=== PATIENT | female | born 1945 | race Caucasian/White ===

== ENCOUNTER 2018-09-14 12:06 | Emergency (ER) | payer MEDICARE, OTHER ==
[2018-09-14 12:30] VITALS: BP 130/78
--- NOTE | 2018-09-14 12:50 | EDM.PDOC ---
ED HPI GENERAL MEDICAL PROBLEM - General Chief Complaint: Upper Extremity Injury/Pain Stated Complaint: POSSIBLE BROKEN LT WRIST Time Seen by Provider: 09/14/18 12:22 Source of Information: Reports: Patient History Limitations: Reports: No Limitations - History of Present Illness INITIAL COMMENTS - FREE TEXT/NARRATIVE: 73 yo female presents to ER with left wrist injury. Pt fell landing on out stretched hand. Pain and swelling. - Related Data Allergies Allergy/AdvReac Type Severity Reaction Status Date / Time Iodinated Contrast- Oral and Allergy Other Verified 09/14/18 12:20 IV Dye Home Meds: Home Meds Acetaminophen 1 - 2 tab PO Q6H PRN 03/20/17 [History] Alendronate Sodium [Fosamax] 1 tab PO WEEKLY 03/20/17 [History] Amphetamine/Dextroamphetamine [Adderall XR] 1 tab PO BID 03/20/17 [History] Bimatoprost [LUMIGAN 0.01% Ophth Soln] 1 drop EYEBOTH BEDTIME 03/20/17 [History] Cetirizine [ZyrTEC] 1 tab PO DAILY PRN 03/20/17 [History] Estradiol [Estrace 0.01% Vaginal Crm] 0.5 g ASDIRECTED 03/20/17 [History] L.acidoph,Paracasei, B.lactis [Probiotic] 1 cap PO DAILY 03/20/17 [History] Levothyroxine Sodium [Synthroid] 1 tab PO DAILY 03/20/17 [History] Omeprazole 1 cap PO DAILY 03/20/17 [History] Zolpidem Tartrate [Ambien] 1 - 2 tab PO BEDTIME PRN 03/20/17 [History] flavoxATE [flavoxATE HCl] 1 tab PO TID PRN 03/20/17 [History] fluvoxaMINE Maleate [Fluvoxamine Maleate ER] 1 cap PO BID 03/20/17 [History] ARIPiprazole [Aripiprazole] 09/14/18 [History] Gabapentin [Neurontin] 09/14/18 [History] Terbinafine HCl [Terbinafine] 09/14/18 [History] amLODIPine [Norvasc] 09/14/18 [History] fluvoxaMINE Maleate [Fluvoxamine Maleate] 09/14/18 [History] Past Medical History HEENT History: Reports: Cataract Cardiovascular History: Reports: Arrhythmia, Hypertension Gastrointestinal History: Reports: Irritable Bowel Syndrome Musculoskeletal History: Reports: Neck Pain, Chronic Endocrine/Metabolic History: Reports: Hyperparathyroidism Dermatologic History: Reports: Benign Melanoma - Past Surgical History Female Surgical History: Reports: Endometrial Ablation Musculoskeletal Surgical History: Reports: Arthroscopic Procedure, Shoulder Replacement Social & Family History - Tobacco Use Smoking Status *Q: Never Smoker Review of Systems - Review of Systems Review Of Systems: See Below Constitutional: Denies: Chills, Fever Respiratory: Denies: Shortness of Breath, Wheezing Cardiovascular: Denies: Chest Pain GI/Abdominal: Denies: Abdominal Pain Musculoskeletal: Reports: Arm Pain ED EXAM, GENERAL - Physical Exam Exam: See Below Exam Limited By: No Limitations General Appearance: Alert, WD/WN, No Apparent Distress Respiratory/Chest: No Respiratory Distress Peripheral Pulses: 2+: Radial (L) Extremities: Arm Pain (moderate deformity and edema left forearm, CMS distil to injury intact) Course - Vital Signs Last Recorded V/S: Last Vital Signs Temp 36.4 C 09/14/18 12:29 Pulse 109 H 09/14/18 12:29 Resp 14 09/14/18 12:29 BP 130/78 09/14/18 12:29 Pulse Ox 96 09/14/18 12:29 - Orders/Labs/Meds Orders: Active Orders 24 hr Category Date Time Status Wrist 2V Lt [CR] Stat Exams 09/14/18 14:12 Ordered Meds: Medications Discontinued Medications Generic Name Dose Route Start Last Admin Trade Name Mauri PRN Reason Stop Dose Admin Morphine Sulfate 1 mg 09/14/18 13:11 09/14/18 13:41 Morphine IVPUSH 09/14/18 13:12 1 mg ONETIME ONE Administration Ondansetron HCl 4 mg 09/14/18 13:12 09/14/18 13:41 Zofran IVPUSH 09/14/18 13:13 4 mg ONETIME ONE Administration Propofol 100 mg 09/14/18 13:49 Diprivan 20 Ml IVPUSH 09/14/18 13:50 ONETIME ONE - Re-Assessments/Exams Free Text/Narrative Re-Assessment/Exam: 09/14/18 14:10 conscience sedation with propofol with assistance of Dr. Mathis. left wrist reduction performed. CMS post reduction intact. tolerated reduction and sedation well 09/14/18 14:13 09/14/18 14:[address] Parker, instructed to follow-up with him in 7-10 days Departure - Departure Time of Disposition: 14:33 Disposition: Home, Self-Care 01 Condition: Good Clinical Impression: Fracture of radius Qualifiers: Encounter type: initial encounter Radius location: distal Fracture type: closed Fracture morphology: Colles' Laterality: right Qualified Code(s): S52.531A - Colles' fracture of right radius, initial encounter for closed fracture - Discharge Information *PRESCRIPTION DRUG MONITORING PROGRAM REVIEWED*: No *COPY OF PRESCRIPTION DRUG MONITORING REPORT IN PATIENT MEGHAN: No Instructions: Forearm Fracture, [id number] Referrals: Diego Merino MD [Primary Care Provider] - Forms: ED Department Discharge Additional Instructions: radial fracture reduced in the emergency room It is very important that you do not use the left arm follow-up with orthopedic Dr in 7-10 days, call there clinic on Sunday ice as much as possible over the next 72 hours percocet for pain control 0.5-1 tablet every 6 hours - My Orders Last 24 Hours: My Active Orders 09/14/18 14:12 Wrist 2V Lt [CR] Stat - Assessment/Plan Last 24 Hours: My Active Orders 09/14/18 14:12 Wrist 2V Lt [CR] Stat
[2018-09-14] MEDS ORDERED: Morphine 2 MG/ML Syringe IM ONE (13:06)
[2018-09-14] MEDS ORDERED: Ondansetron 4 MG Tab.DIS PO ONE (13:06)
[2018-09-14] MEDS ORDERED: Morphine 2 MG/ML Syringe IVPUSH ONE (13:11)
[2018-09-14] MEDS ORDERED: Ondansetron 4 MG/2 ML SDV IVPUSH ONE (13:12)
--- NOTE | 2018-09-14 13:23 | CRLCR ---
Trauma 3 views of the left wrist. Findings: Comminuted intra-articular impacted distal radius fracture. Overlap of the fracture fragments with volar angulation. Soft tissue swelling. Possible subtle ulnar styloid fracture. Dictated by Geno Espinoza MD @ Sep 14 2018 1:21PM Signed by Dr. Gneo Espinoza @ Sep 14 2018 1:23PM
[2018-09-14] MEDS ORDERED: Propofol 200 MG/20 ML SDV IVPUSH ONE (13:49)
--- NOTE | 2018-09-14 15:03 | CRLCR ---
INDICATION: POST REDUCTION COMPARISON: X-rays earlier the same day. FINDINGS: Two views of the left wrist demonstrate interval improved alignment and casting of previously seen comminuted distal radius fracture. Cast material obscures osseous detail. No new acute osseous or soft tissue findings. IMPRESSION: Improved alignment and casting of previously seen comminuted distal radius fracture. Dictated by Jero Mazariegos MD @ 09/14/2018 3:02:28 PM Dictated by: Jero Mazariegos MD @ 09/14/2018 15:02:43 (Electronically Signed)
== END 2018-09-14 14:50 | disposition home or self-care (01) ==
LOC: JP.ED 12:06
DX: S52.531A Colles' fracture of right radius, initial encounter for closed fracture (principal); I10 Essential (primary) hypertension; E21.3 Hyperparathyroidism, unspecified; Z91.041 Radiographic dye allergy status; Z79.899 Other long term (current) drug therapy; W19.XXXA Unspecified fall, initial encounter
CPT/HCPCS: 25605; 73100; 73110; 96374; 96375; 99152; 99283; J2270; J2405; J2704

== ENCOUNTER 2018-09-25 07:19 | Day surgery (SDC) | payer MEDICARE, OTHER ==
[2018-09-25] MEDS ORDERED: Lactated Ringers 1,000 ML IV SCH (08:00)
[2018-09-25] MEDS ORDERED: Bupivacaine 0.5% 50 ML MDV ONE (08:18)
[2018-09-25] MEDS ORDERED: Albuterol/Ipratropium 3.0-0.5 MG/3 ML Neb Soln NEB ONE (08:18)
[2018-09-25] MEDS ORDERED: ceFAZolin 2 GM in Sodium Chloride 0.9% 100 ML IV ONE (08:30)
[2018-09-25] MEDS ORDERED: ceFAZolin 2 GM in Premix Bag 1 BAG IV ONE (08:30)
[2018-09-25] MEDS ORDERED: fentaNYL 100 MCG/2 ML SDV ONE ×2 (08:38→09:21)
[2018-09-25] MEDS ORDERED: Midazolam 1 MG/ML 2 ML SDV ONE (08:38)
[2018-09-25] MEDS ORDERED: Propofol 200 MG/20 ML SDV ONE ×2 (08:38→09:04)
[2018-09-25] MEDS ORDERED: Lidocaine 0.5% 50 ML SDV ONE (08:43)
[2018-09-25 10:41] VITALS: BP 121/70
--- NOTE | 2018-09-25 14:17 | OR ---
DATE OF PROCEDURE: 09/25/2018 PREOPERATIVE DIAGNOSIS: Displaced left distal radius fracture. POSTOPERATIVE DIAGNOSIS: Displaced left distal radius fracture, intra- articular. PROCEDURE: Open reduction internal fixation of left distal radius using Synthes volar plate. ANESTHESIA: Emily block with sedation. INDICATIONS: Danuta is a 73-year-old female who sustained a fall resulting in fracture of her left distal radius. The fracture was displaced and she underwent closed reduction in the emergency room. Initial reduction looked quite good. She followed up in clinic and the splint was changed out to a short arm fiberglass cast. X-rays in the cast revealed loss of position of the fracture, particularly one of the intra-articular volar fragments. She was therefore taken to the operating room for open reduction and internal fixation. Risks, benefits , and potential complications of operative procedure versus conservative treatment were discussed. She agrees to proceed. PROCEDURE IN DETAIL: After adequate anesthesia was obtained, the patient was supine with a tourniquet about the upper arm. A longitudinal incision was made after prep and drape. This was carried out with a slight angulation across the wrist crease, carried through the subcutaneous tissues and blunt dissection then carried out radial to the palmaris longus protecting the median nerve. Self-retaining retractor was placed and the quadratus was then divided and elevated off the fracture, allowing clearance of soft tissues and reduction of the volar fragment. Reduction was evaluated using fluoroscopy. A Synthes volar locking plate was then secured using cortical screws proximally and locking screws distally. Position of screws was confirmed using fluoroscopy. One of the initial cortical screws was somewhat prominent on the dorsal surface after final placement of the plate. This was removed and replaced with a shorter screw. Final position was confirmed. The wound was then irrigated. The skin was then closed with 2-0 Vicryl and a running 3-0 Monocryl. Steri- Strips were applied. The wound was infiltrated with 0.5% Marcaine at the close of procedure. A well-padded volar splint was then applied. The patient tolerated procedure well, there were no complications, was taken from the operating room in stable condition. Shine Parker MD /[id number] ISABELL
== END 2018-09-25 10:55 | disposition home or self-care (01) ==
LOC: JP.SDS 07:19
PROVIDERS: ATTEND Specialist
DX: S52.531A Colles' fracture of right radius, initial encounter for closed fracture (principal); I10 Essential (primary) hypertension; I25.2 Old myocardial infarction; E21.3 Hyperparathyroidism, unspecified; J45.909 Unspecified asthma, uncomplicated; K21.9 Gastro-esophageal reflux disease without esophagitis; K58.9 Irritable bowel syndrome, unspecified; W19.XXXA Unspecified fall, initial encounter; Z91.041 Radiographic dye allergy status; Z79.899 Other long term (current) drug therapy
CPT/HCPCS: 25608; 36415; 76000; 80048; 85027; 94640; J0690; J2250; J2704; J3010; J3490; J7120; C1713; J7620-GY

== ENCOUNTER 2018-11-11 07:21 | Day surgery (SDC) | payer MEDICARE, OTHER ==
[~2018-11-11 07:21] MED LIST: Bupivacaine 0.5% 50 ML MDV ONE
[2018-11-11] MEDS ORDERED: Nozin Nasal Sanitizer NASBOTH ONE (07:30)
[2018-11-11] MEDS ORDERED: ceFAZolin 1 GM in Premix Bag 1 BAG IV ONE (07:45)
[2018-11-11] MEDS ORDERED: Lactated Ringers 1,000 ML IV SCH (07:45)
[2018-11-11] MEDS ORDERED: Lidocaine 0.5% 50 ML SDV ONE (08:21)
[2018-11-11] MEDS ORDERED: Propofol 200 MG/20 ML SDV ONE ×8 (08:21→12:02)
[2018-11-11] MEDS ORDERED: fentaNYL 100 MCG/2 ML SDV ONE ×2 (08:21→10:55)
[2018-11-11] MEDS ORDERED: Midazolam 1 MG/ML 2 ML SDV ONE (08:21)
[2018-11-11] MEDS ORDERED: Ketorolac 60 MG/2 ML SDV ONE (12:04)
[2018-11-11 13:51] VITALS: BP 121/77; PULSE 84
--- NOTE | 2018-11-13 13:14 | OR ---
DATE OF PROCEDURE: 11/11/2018 PREOPERATIVE DIAGNOSIS: Malunion, left distal radius, with loss of fixation. POSTOPERATIVE DIAGNOSIS: Malunion, left distal radius, with loss of fixation. PROCEDURE: Revision of open reduction and internal fixation, left distal radius. ANESTHESIA: Emily block with sedation. INDICATIONS: Danuta is a 73-year-old female who sustained a fall resulting in a volar Lieberman- type fracture with displacement. She underwent open reduction and internal fixation with a volar plate. The intraoperative fluoroscopy showed good reduction. The followup x-rays, however, showed loss of fixation on the volar fragment resulting in displacement of the carpus. She has therefore returned to the operating room for revision of open reduction and internal fixation. Risks, benefits, and potential complications including the possibility of use of an external fixator were discussed. DESCRIPTION OF PROCEDURE: After adequate anesthesia was obtained, the patient was placed supine, and the left hand and arm were prepped and draped in a sterile fashion. Previous incision was utilized and extended across the wrist crease at a 45-degree angle angling towards the radial styloid. Dissection was carried down radial to the median nerve, which was identified and protected. Blunt dissection was carried down to the plate. The previous plate and screws were exposed and removed. Evaluation during removal and exposure of the plate revealed that the volar fragment had displaced over top of the plate. Once the plate was removed, the displaced fragment was mobilized with an osteotome. Traction was placed through the digits, and the carpus was maneuvered back up in line with the radius. This was an intra-articular fracture with damage to the articular surface. The proximal end of the scaphoid was visualized and also showed some articular cartilage damage. A portion of the lunate could be visualized and appeared intact. After some manipulation of the fracture fragments and continued traction across the joint, adequate alignment could be obtained. Due to the very small nature of the fracture fragments, decision was made to use the distal radius angle plates as a buttress as attempt to get a screw through the fracture fragment would result in the screw penetrating into the radiocarpal joint. The plates were positioned and position confirmed using fluoroscopy. Initial cortical screw fixation compressed the plate against the volar aspect of the cortex of the radius providing compression and a buttress effect on the distal fragment. Radial and ulnar plates were selected. Final position of the plate and screws were confirmed using fluoroscopy. Wound was irrigated. A #1 Vicryl suture was placed through the capsule between the scaphoid and lunate, closing any potential damage to the scapholunate ligament. An additional suture was placed through the volar capsule and secured around one of the plates in an attempt to prevent displacement of the fracture fragment. The skin was then closed with 2-0 Vicryl and a running 3-0 Monocryl. Steri-Strips were applied. Wound edges were infiltrated with 0.5% Marcaine without epinephrine. Sterile dressing was applied. A well-padded volar splint was placed. The patient tolerated the procedure well. There were no complications. She was taken from the operating room in a stable condition. Shine Parker MD /[id number]
== END 2018-11-11 13:37 | disposition home or self-care (01) ==
LOC: JP.SDS 07:21
PROVIDERS: ATTEND Specialist
DX: S52.56 Barton's fracture (principal); J44.9 Chronic obstructive pulmonary disease, unspecified; J45.909 Unspecified asthma, uncomplicated; I10 Essential (primary) hypertension; K21.9 Gastro-esophageal reflux disease without esophagitis; F41.9 Anxiety disorder, unspecified; E03.9 Hypothyroidism, unspecified; W19.XXXD Unspecified fall, subsequent encounter
CPT/HCPCS: 25400; 36415; 76000; 80048; 85027; A9270; J0690; J1885; J2001; J2250; J2704; J3010; J3490; J7120; C1713

== ENCOUNTER 2020-07-20 06:59 | Day surgery (SDC) | payer MEDICARE, OTHER ==
[~2020-07-20 06:59] MED LIST changes: +Lidocaine 1% with EPINEPHrine 1:100,000 50 ML MDV ONE; +Meropenem 500 MG SDV ONE
[2020-07-20] MEDS ORDERED: Gabapentin 300 MG Cap PO ONE (07:15)
[2020-07-20] MEDS ORDERED: Acetaminophen 500 MG Tab PO ONE (07:15)
[2020-07-20] MEDS ORDERED: Ketamine 50 MG in Sodium Chloride 0.9% 49.5 ML IV SCH (07:30)
[2020-07-20] MEDS ORDERED: Ketamine 500 MG/5 ML MDV IV SCH (07:30)
[2020-07-20] MEDS ORDERED: Dextrose 5%-Lactated Ringers 1,000 ML IV SCH (07:30)
[2020-07-20] MEDS ORDERED: Albuterol/Ipratropium 3.0-0.5 MG/3 ML Neb Soln NEB ONE (08:00)
[2020-07-20] MEDS ORDERED: Dexamethasone 4 MG/ML SDV ONE (08:19)
[2020-07-20] MEDS ORDERED: Glycopyrrolate 0.2 MG/ML 5 ML MDV ONE (08:19)
[2020-07-20] MEDS ORDERED: Neostigmine Methylsulfate 1 MG/ML 5 ML Syringe ONE (08:19)
[2020-07-20] MEDS ORDERED: Rocuronium 50 MG/5 ML Vial ONE (08:19)
[2020-07-20] MEDS ORDERED: Propofol 200 MG/20 ML SDV ONE (08:19)
[2020-07-20] MEDS ORDERED: fentaNYL 250 MCG/5 ML SDV ONE (08:19)
[2020-07-20] MEDS ORDERED: Ondansetron 4 MG/2 ML SDV ONE (08:19)
[2020-07-20] MEDS ORDERED: Succinylcholine 200 MG/10 ML MDV ONE (08:19)
[2020-07-20] MEDS ORDERED: ceFAZolin 2 GM in Premix Bag 1 BAG IV ONE (08:30)
[2020-07-20] MEDS ORDERED: fentaNYL 100 MCG/2 ML SDV ONE (09:30)
[2020-07-20] MEDS ORDERED: HYDROmorphone 0.5 MG/0.5 ML Syringe IVPUSH PRN (11:23)
[2020-07-20] MEDS ORDERED: HYDROmorphone 1 MG/ML Syringe IV PRN (11:24)
[2020-07-20] MEDS ORDERED: Ondansetron 4 MG/2 ML SDV IVPUSH PRN (11:25)
[2020-07-20] MEDS ORDERED: Albuterol/Ipratropium 3.0-0.5 MG/3 ML Neb Soln INH PRN (11:27)
[2020-07-20] MEDS ORDERED: Zolpidem 5 MG Tab PO PRN (11:27)
[2020-07-20] MEDS ORDERED: Cetirizine 10 MG Tab PO PRN (11:37)
[2020-07-20] MEDS: Dextrose 5%-Lactated Ringers 1,000 ML IV SCH ×2 (13:12→21:47)
[2020-07-20] MEDS: Albuterol/Ipratropium 3.0-0.5 MG/3 ML Neb Soln INH SCH ×2 (13:40→21:18)
[2020-07-20] MEDS: Acetaminophen 500 MG Tab PO SCH (13:48)
[2020-07-20] MEDS: Gabapentin 300 MG Cap PO SCH ×2 (13:49→21:18)
[2020-07-20] MEDS: ceFAZolin 2 GM in Premix Bag 1 BAG IV SCH (17:15)
[2020-07-20] MEDS: oxyCODONE 5 MG Tab PO PRN (19:57)
[2020-07-20] MEDS ORDERED: Latanoprost 0.005% Ophth Soln 2.5 ML Bottle EYEBOTH SCH (21:00)
[2020-07-20] MEDS: fluvoxaMINE 100 MG Tab PO SCH (21:18)
[2020-07-21] MEDS: Acetaminophen 500 MG Tab PO SCH ×2 (00:47→07:20)
[2020-07-21] MEDS: ceFAZolin 2 GM in Premix Bag 1 BAG IV SCH ×2 (00:48→08:39)
[2020-07-21] MEDS: Dextrose 5%-Lactated Ringers 1,000 ML IV SCH (05:57)
[2020-07-21] MEDS: Albuterol/Ipratropium 3.0-0.5 MG/3 ML Neb Soln INH SCH (07:12)
[2020-07-21 07:13] VITALS: PULSE 64
[2020-07-21] MEDS ORDERED: Levothyroxine 25 MCG, Levothyroxine 50 MCG PO SCH ×2 (07:30)
[2020-07-21] MEDS ORDERED: Amphetamine/Dextroamphetamine Salts 10 MG Tab PO SCH (08:00)
[2020-07-21] MEDS: fluvoxaMINE 100 MG Tab PO SCH (08:48)
[2020-07-21] MEDS: Gabapentin 300 MG Cap PO SCH (08:48)
[2020-07-21 08:56] VITALS: BP 110/60
[2020-07-21] MEDS ORDERED: amLODIPine 5 MG Tab PO SCH (09:00)
[2020-07-21] MEDS ORDERED: Fluticasone Propionate Nasal Spray 16 GM Bottle NASBOTH SCH (09:00)
[2020-07-21] MEDS: oxyCODONE 5 MG Tab PO PRN (09:00)
[2020-07-21] MEDS ORDERED: ARIPiprazole 10 MG Tab PO SCH (09:00)
--- NOTE | 2020-07-21 12:11 | DISCH ---
ADMISSION DIAGNOSIS: Incarcerated periumbilical incisional hernia. DISCHARGE DIAGNOSES: Diagnostic laparoscopy with repair of periumbilical incisional hernia and separate incarcerated umbilical hernia with mesh and placement of Interceed mesh. Date of procedure: 07/20/2020. Surgeon: Andreas Rose MD. HISTORY: Danuta Mcgill is a 75-year-old female with incarcerated periumbilical incisional hernia and incarcerated umbilical hernia. After preoperative evaluation and discussion of possible risks and possible complications, she wished to proceed with surgical procedure. HOSPITAL COURSE: Danuta had her surgery on 07/20/2020. She had no operative complications. On postoperative day #1, she was able to be discharged to home. Vital signs were stable. Pain was well managed. Activity was good. Oral intake was adequate. REVIEW OF SYSTEMS: Remainder of review of systems negative for any pertinent positives and negatives. OBJECTIVE: GENERAL: Danuta Mcgill is a pleasant 75-year-old female. VITAL SIGNS: Height is 5 feet 1.75 inches, weight is 147 pounds. TPR is 96.4, 89, 16, blood pressure 130/50. HEENT: Negative. NECK: Supple. HEART: Regular rate and rhythm. LUNGS: Clear. ABDOMEN: Dressing dry and intact. Abdominal binder is on. EXTREMITIES: Without peripheral edema. DISPOSITION: Discharged to home. MEDICATIONS: New medication is oxycodone 5 mg p.o. q.4 hours p.r.n. pain, #42. She is to resume her home medications. Followup appointment: Andreas Rose MD, on 07/28/2020 at 11 a.m. DIET: Usual diet as tolerated. Drink 8 to 10 glasses of water a day. ACTIVITY: No lifting greater than 10 pounds for 6 weeks. Other activity: Walk inside your home about 6 times daily. DISCHARGE INSTRUCTIONS: Driving: Do not drive for 1 week or within 6 hours of taking oxycodone. Shower/Bathing: May shower. Take off dressings tomorrow, 07/22/2020. Keep operative site clean and dry. Wear the rolled up pressure dressing over umbilicus until next appointment. Wear abdominal binder for 2 to 6 weeks if tolerated. Notify provider if any fever, increased pain, swelling, redness, drainage, nausea, or vomiting. SPECIAL INSTRUCTION: Use incentive spirometer 10 times every hour while awake. /[id number]
--- NOTE | 2020-08-02 15:21 | OR ---
DATE OF PROCEDURE: 07/20/2020 SURGEON: Andreas Rose MD PREOPERATIVE DIAGNOSIS: Incarcerated periumbilical hernia. POSTOPERATIVE DIAGNOSES: 1. Incarcerated periumbilical incisional hernia. 2. Separate incarcerated umbilical hernia. 3. Extensive intraabdominal adhesions. OPERATIVE PROCEDURES: Diagnostic laparoscopy with lysis of adhesions and: 1. Repair of incarcerated periumbilical incisional hernia with mesh (77403). 2. Repair of separate incarcerated umbilical hernia with mesh ([id number]). 3. Placement of Interceed mesh underneath presently placed mesh and adjacent pelvic and abdominal wall to limit recurrent adhesion formation between those surfaces and the underlying viscera ([id number]). ANESTHESIA: General. SENIOR FORMULATION SCIENTIST: Park Bloom PA-C INDICATIONS FOR PROCEDURE: This is a 75-year-old female presenting with increasingly symptomatic periumbilical hernia that has not been reducible. Plan is to proceed with repair of this with laparoscopic approach with mesh. Potential risks including bleeding, infection, injury to underlying viscera, problems with mesh becoming infected or the hernia recurring as well as possibility of cardiopulmonary, septic, or hemorrhagic complications leading to were discussed, and the patient wishes to proceed. DETAILS OF PROCEDURE: The patient was taken to the operating room. After general endotracheal anesthesia was induced, Ojeda catheter was inserted, and the abdomen prepped and draped. In the left lateral mid abdomen, a transverse incision was made and the peritoneal cavity entered under direct vision with an Optiview trocar. The laparoscope was reinserted. No underlying trocar insertion site injuries were seen. Following this, 5 mm trocars were placed in the left upper quadrant. There were quite a bit in the way of adhesions between the area of the hernia formation in the periumbilical area and the omentum. These were taken down with Harmonic scalpel. Upon further dissection, it became evident that the patient had 2 separate hernias. One was a periumbilical incisional hernia related to previous laparoscopic trocar site and a separate primary umbilical hernia, both of which had incarcerated preperitoneal fat and omentum within them. These were reduced and portions of the hernia sac excised. The defects on both were very small and these appeared to be satisfactorily covered internally with a single circular mesh. A Ventralight ST mesh with the balloon positioning system with a circular dimension in a 15.2 cm diameter was selected. This was soaked in an antibiotic- containing saline solution and placed in an intraperitoneal location. A small stab wound between the 2 sites of the hernia was made and this allowed the suture passer to be passed through that area, and the balloon inflation catheter then pulled up through the abdominal wall. The balloon was inflated, thus bringing the mesh up against the abdominal wall, where it was affixed circumferentially with absorbable tacking screws. Upon completion of the mesh fixation, it appeared to be satisfactory in all the areas, and the balloon was deflated and withdrawn leaving the mesh otherwise in place. To limit recurrent adhesion formation, Interceed mesh was then placed underneath the currently placed mesh and extending somewhat further down into the pelvis to limit recurrent adhesion formation between those surfaces and the underlying viscera. The trocars were then sequentially removed. The patient had received bilateral transversus abdominis plane blocks prior to that. The fascia at the 12 mm site was closed with 0 Vicryl stitch and the skin at each incision with 4-0 Vicryl stitch. The patient was taken to the recovery room in satisfactory condition. Physician special event assistant, Park Bloom, played an essential role in assisting in this case, helping to position the patient, retract structures as needed, as well as suturing and cutting sutures when indicated. Her presence improved patient safety and decreased operative time. Andreas Rose MD /[id number]
== END 2020-07-21 10:30 | disposition home or self-care (01) ==
LOC: JP.SDS 06:59 → JP.MS 09:15 → JP.SDS 07-21 10:30
PROVIDERS: ATTEND Surgery
DX: K42.0 Umbilical hernia with obstruction, without gangrene (principal); K43.0 Incisional hernia with obstruction, without gangrene; K66.0 Peritoneal adhesions (postprocedural) (postinfection); M79.89 Other specified soft tissue disorders; J44.9 Chronic obstructive pulmonary disease, unspecified; I10 Essential (primary) hypertension; E03.9 Hypothyroidism, unspecified; Z79.890 Hormone replacement therapy; Z79.899 Other long term (current) drug therapy; Z91.041 Radiographic dye allergy status
CPT/HCPCS: 36415; 49653; 49655; 80053; 83735; 84100; 84443; 85027; 88302; 94640; 94762; A9270; C1781; J0171; J0330; J0690; J1100; J1170; J2020; J2185; J2405; J2704; J2710; J2795; J3010; J3490; J7121; J7620-GY

== ENCOUNTER 2022-12-20 08:04 | Day surgery (SDC) | payer MEDICARE, OTHER ==
[~2022-12-20 08:04] MED LIST changes: +Bupivacaine 0.5% 30 ML SDV ONE; -Bupivacaine 0.5% 50 ML MDV ONE; -Lidocaine 1% with EPINEPHrine 1:100,000 50 ML MDV ONE; -Meropenem 500 MG SDV ONE
[2022-12-20] MEDS ORDERED: fentaNYL 100 MCG/2 ML SDV ONE ×3 (08:17→09:59)
[2022-12-20] MEDS ORDERED: Propofol 200 MG/20 ML SDV ONE (08:17)
[2022-12-20] MEDS ORDERED: Midazolam 1 MG/ML 2 ML SDV ONE (08:17)
[2022-12-20] MEDS ORDERED: Lactated Ringers 1,000 ML IV SCH (08:30)
[2022-12-20] MEDS ORDERED: Nozin Nasal Sanitizer NASBOTH ONE (08:30)
[2022-12-20] MEDS ORDERED: ceFAZolin 1 GM in Premix Bag 1 BAG IV ONE (08:30)
[2022-12-20 08:34] LABS: HEMATOCRIT 38.5 % (34.3-46.0); HEMOGLOBIN 12.5 g/dL (11.2-15.5); MEAN CORPUSCULAR HEMOGLOBIN 30.4 pg (31.6-35.5); MEAN CORPUSCULAR HGB CONC 32.5 g/dL (31.6-35.5); MEAN CORPUSCULAR VOLUME 93.7 fL (81.4-99.0); RED BLOOD CELL COUNT 4.11 M/uL (3.77-5.24); WHITE BLOOD CELL COUNT,WBC 7.3 K/uL (3.2-11.0)
[2022-12-20] MEDS ORDERED: Ondansetron 4 MG/2 ML SDV ONE (08:35)
[2022-12-20] MEDS ORDERED: Dexamethasone 4 MG/ML SDV ONE (08:35)
[2022-12-20 08:55] LABS: A/G RATIO 0.7 (1.2-2.2); ALANINE AMINOTRANSFERASE,ALT 26 U/L (12-78); ALBUMIN 3.5 g/dL (3.4-5.0); ALKALINE PHOSPHATASE 107 U/L (46-116); ASPARTATE AMNIOTRANSFERASE,AST 16 U/L (15-37); BILIRUBIN TOTAL 0.5 mg/dL (0.2-1.0); BLOOD UREA NITROGEN,BUN 13 mg/dL (7-18); CALCIUM 9.5 mg/dL (8.5-10.1); CARBON DIOXIDE,CO2 29 mmol/L (21-32); CHLORIDE,CL 100 mmol/L (100-108); CREATININE 0.9 mg/dL (0.6-1.0); ESTIMATED GFR 66 mL/min (>60); GLUCOSE RANDOM 92 mg/dL (74-106); POTASSIUM,K 3.6 mmol/L (3.6-5.2); PROTEIN TOTAL,TP 8.7 g/dL (6.4-8.2); SODIUM,NA 138 mmol/L (140-148)
[2022-12-20 08:58] LABS: ANION GAP 12.6 mmol/L (5.0-14.0)
[2022-12-20 11:45] VITALS: BP 122/66; PULSE 90
[2022-12-20] MEDS ORDERED: Acetaminophen/HYDROcodone 325-5 MG Tab PO ONE (12:00)
== END 2022-12-20 12:16 | disposition home or self-care (01) ==
LOC: JP.SDS 08:04
PROVIDERS: ATTEND Specialist
DX: S83.232A Complex tear of medial meniscus, current injury, left knee, initial encounter (principal); M22.42 Chondromalacia patellae, left knee; J44.9 Chronic obstructive pulmonary disease, unspecified; I10 Essential (primary) hypertension; F32.A Depression, unspecified; Z88.0 Allergy status to penicillin; Z88.8 Allergy status to other drugs, medicaments and biological substances; Z87.891 Personal history of nicotine dependence
CPT/HCPCS: 29881; 36415; 80053; 85027; 93005; A9270; J0690; J1100; J2250; J2405; J2704; J3010; J3490; J7120

== ENCOUNTER → 2025-02-09 | Day surgery (SDC) | payer MEDICARE, OTHER ==
[~2025-02-09] MED LIST changes: -Bupivacaine 0.5% 30 ML SDV ONE; +Propofol 200 MG/20 ML SDV ONE; +fentaNYL 50 MCG/ML SDV ONE
[2025-02-09] MEDS: Lactated Ringers 1,000 ML IV SCH (07:52)
[2025-02-09 10:14] VITALS: BP 118/72; PULSE 91
== END ==
LOC: JP.SDS 07:01
PROVIDERS: ATTEND Surgery
DX: K21.9 Gastro-esophageal reflux disease without esophagitis (principal); J45.909 Unspecified asthma, uncomplicated; F32.A Depression, unspecified; Z88.0 Allergy status to penicillin; Z88.6 Allergy status to analgesic agent; Z91.041 Radiographic dye allergy status; Z79.899 Other long term (current) drug therapy
CPT/HCPCS: 43239; 87081; J2704; J3010; J7120; 00731-QZ